=== PATIENT | male | born 1960 | race Caucasian/White ===

== ENCOUNTER → 2017-04-12 | Outpatient (CLI) | payer BC ==
[~2017-04-12] VITALS: Ht 170.2 cm; Wt 68.0 kg
[~2017-04-12] MED LIST: BREO ELLIPTA I1 EACH IH; LO-DOSE ASPIRIN81 M1 PO; PRINIVIL20 MG PO
== END | disposition home or self-care (01) ==
LOC: AMB 10:46
PROC: 0DJD8ZZ Inspection of Lower Intestinal Tract, Via Natural or Artificial Opening Endoscopic (ICD-10-PCS; principal; 2017-04-12)
DX: Z12.11 Encounter for screening for malignant neoplasm of colon (principal); R93.3 Abnormal findings on diagnostic imaging of other parts of digestive tract; R05 Cough; R91.8 Other nonspecific abnormal finding of lung field; I10 Essential (primary) hypertension; J30.9 Allergic rhinitis, unspecified; R59.9 Enlarged lymph nodes, unspecified; R74.8 Abnormal levels of other serum enzymes; Z80.3 Family history of malignant neoplasm of breast; Z82.49 Family history of ischemic heart disease and other diseases of the circulatory system; Z83.3 Family history of diabetes mellitus; Z87.891 Personal history of nicotine dependence; Z79.82 Long term (current) use of aspirin
CPT/HCPCS: 93005; J2405

== ENCOUNTER → 2018-03-25 | Outpatient (CLI) | payer BC ==
[~2018-03-25] VITALS: Ht 170.2 cm; Wt 68.0 kg
[~2018-03-25] MED LIST changes: +COZAAR100 MG PO; +FLOMAX0.4 MG PO; +FLONASE ALLERG9.9 ML BOTH NARES; +VITAMIN D32000 UNI1 PO
[2018-03-25 15:37] LABS: HEMATOCRIT 45.9 % (38.0-50.0); HEMOGLOBIN 16.3 G/DL (12.5-16.6); MCH 30.9 PG (29.0-34.0); MCHC 35.5 G/DL (30.0-36.0); MCV 87.1 FL (86-99); PLATELET COUNT 226 K/uL (156-360); RBC DIS.WIDTH-CV 12.2 % (11.8-14.6); RBC DIS.WIDTH-SD 39.3 % (39-53); RED BLOOD COUNT 5.27 M/uL (4.00-5.50)
[2018-03-25 15:45] LABS: PTT 28.8 SEC (25-37)
== END | disposition home or self-care (01) ==
LOC: AMB 14:30
PROVIDERS: Internal Medicine Pulmonary Disease
PROC: 0BB28ZX Excision of Carina, Via Natural or Artificial Opening Endoscopic, Diagnostic (ICD-10-PCS; principal; 2018-03-25)
PROC: 0BBC8ZX Excision of Right Upper Lung Lobe, Via Natural or Artificial Opening Endoscopic, Diagnostic (ICD-10-PCS; principal; 2018-03-25)
PROC: 0B9C8ZX Drainage of Right Upper Lung Lobe, Via Natural or Artificial Opening Endoscopic, Diagnostic (ICD-10-PCS; principal; 2018-03-25)
PROC: 07D78ZX Extraction of Thorax Lymphatic, Via Natural or Artificial Opening Endoscopic, Diagnostic (ICD-10-PCS; principal; 2018-03-25)
PROC: 0BDC8ZX Extraction of Right Upper Lung Lobe, Via Natural or Artificial Opening Endoscopic, Diagnostic (ICD-10-PCS; principal; 2018-03-25)
DX: R91.8 Other nonspecific abnormal finding of lung field (principal); D86.9 Sarcoidosis, unspecified; R59.0 Localized enlarged lymph nodes; B39.2 Pulmonary histoplasmosis capsulati, unspecified; J45.909 Unspecified asthma, uncomplicated; E78.5 Hyperlipidemia, unspecified; I10 Essential (primary) hypertension; Z87.891 Personal history of nicotine dependence; Z80.3 Family history of malignant neoplasm of breast; Z82.49 Family history of ischemic heart disease and other diseases of the circulatory system; Z79.82 Long term (current) use of aspirin
CPT/HCPCS: 71045; 85027; 85610; 85730; 87070; 87102; 87116; 87205; 87206; 88108; 88173; 88305; 94799